=== PATIENT | male | born 1995 | race Caucasian/White ===

== ENCOUNTER 2023-06-02 11:19 | Inpatient (IN) | payer OTHER ==
[~2023-06-02] VITALS: Ht 167.6 cm; Wt 76.8 kg
[2023-06-02 11:44] VITALS: BP 135/82; PULSE 110; RESP 18; TEMP 97.8; O2SAT 98
[2023-06-02] MEDS ORDERED: ONDANSETRON 4 MG/2 ML VIAL IVP ONE (12:15)
[2023-06-02] MEDS ORDERED: MIDAZOLAM 5 MG/5 ML VIAL IV ONE (12:15)
[2023-06-02] MEDS ORDERED: NACL 0.9% 1,000 ML IV SCH (12:15)
[2023-06-02] MEDS ORDERED: THIAMINE 100 MG TAB PO ONE (12:20)
[2023-06-02 12:51] LABS: BILIRUBIN,URINE 3+ (NEGATIVE); BLOOD, URINE NEGATIVE (NEGATIVE); LEUKOCYTE ESTERASE ,URINE TRACE (NEGATIVE); NITRITE, URINE POSITIVE (NEGATIVE); PH,URINE 8.5 (5.0-9.0); PROTEIN,URINE 3+ (NEGATIVE); UGLUCOSE TRACE (NEGATIVE); UROBILINOGEN,URINE >=8.0 EU/dL (0.2 - 1)
[2023-06-02 12:53] LABS: COLOR,URINE AMBER (YELLOW)
[2023-06-02 13:01] LABS: APPEARANCE,URINE CLEAR (CLEAR); MUCUS,URINE 1+ /LPF (None Seen); RBC,URINE 0-5 /HPF (0-5); SQUAMOUS EPITHELIAL CELL,UR 0-3 (FEW) /LPF (0-3 (FEW)); WBC,URINE 0-5 /HPF (0-5)
[2023-06-02 13:02] LABS: BASOPHILS # (AUTO) 0.1 K/uL (0.00-0.22); BASOPHILS % (AUTO) 1.2 % (0.0-2.0); EOSINOPHILS % (AUTO) 0.3 % (0.0-4.0); HEMATOCRIT 37.5 % (36-52); HEMOGLOBIN 12.7 g/dL (12.0-18.0); LYMPHOCYTES % (AUTO) 9.9 % (20.5-51.1); MEAN CORPUSCULAR HEMOGLOBIN 33 pg (27-31); MEAN CORPUSCULAR HGB CONC 34 g/dL (33-37); MEAN CORPUSCULAR VOLUME 96.1 fL (80-94); MONOCYTES # (AUTO) 0.8 K/uL (0.8-1.0); MONOCYTES % (AUTO) 8.5 % (1.7-9.3); NEUTROPHILS # (AUTO) 7.9 K/uL (1.8-7.7); NEUTROPHILS % (AUTO) 80.1 % (42.2-75.2); PLATELET COUNT (AUTO) 122 K/uL (140-450); RED CELL DISTRIBUTION WIDTH 17.4 % (11.6-13.7); WHITE BLOOD COUNT (AUTO) 9.9 K/uL (4.8-10.8)
[2023-06-02 13:03] LABS: BACTERIA,URINE FEW /HPF (None Seen); ICTOTEST POSITIVE (NEGATIVE)
[2023-06-02 13:04] LABS: AMPHETAMINE, URINE NEGATIVE ng/ml (NEG <=1000); BARBITURATE, URINE NEGATIVE ng/ml (NEG <=200); BENZODIAZEPINE, URINE NEGATIVE ng/mL (NEG <=200); CANNABINOID, URINE NEGATIVE ng/mL (NEG <=50); COCAINE, URINE NEGATIVE ng/mL (NEG <=300); OPIATE, URINE NEGATIVE ng/mL (NEG <=2000); PHENCYCLIDINE SCREEN,URINE NEGATIVE ng/mL (NEG <=25)
[2023-06-02 13:20] LABS: ANION GAP 13.9 (8-16); CALCIUM 9.2 mg/dL (8.5-10.1); CARBON DIOXIDE 25.7 mmol/L (21-32); CREATININE 0.7 mg/dL (0.6-1.3); POTASSIUM 3.6 mmol/L (3.5-5.1)
[2023-06-02 13:23] LABS: MAGNESIUM 1.7 mg/dL (1.8-2.4); PHOSPHORUS 2.7 mg/dL (2.5-4.9)
[2023-06-02] MEDS ORDERED: MIDAZOLAM 5 MG/5 ML VIAL ONE (13:25)
[2023-06-02] MEDS ORDERED: ONDANSETRON 4 MG/2 ML VIAL ONE (13:25)
[2023-06-02 13:26] LABS: ALANINE AMINOTRANSFERASE 66 U/L (12-78); ALBUMIN 3.8 g/dL (3.4-5.0); ALCOHOL, BLOOD < 3 mg/dL (<10); ALKALINE PHOSPHATASE 188 U/L (50-136); ASPARTATE AMINOTRANSFERASE 250 U/L (15-37); BILIRUBIN,DIRECT 3.4 mg/dL (0.0-0.3); CREATINE KINASE, TOTAL 86 U/L (39-308); TOTAL BILIRUBIN 6.2 mg/dL (0.0-1.0); TOTAL PROTEIN, SERUM 10.4 g/dL (6.4-8.2)
[2023-06-02] MEDS ORDERED: cefTRIAXone 1,000 MG VIAL ONE (13:26)
[2023-06-02] MEDS ORDERED: THIAMINE 100 MG TAB ONE (13:26)
[2023-06-02 13:34] LABS: INR 1.3 (0.8-1.2); PARTIAL THROMBOPLASTIN TIME 31.2 secs (22-35.6); PROTHROMBIN TIME 13.4 secs (10.8-13.4)
[2023-06-02 13:44] LABS: ACETAMINOPHEN < 0.5 ug/ml (10-30); SALICYLATE < 2.8 mg/dL (2.8-20.0)
[2023-06-02] MEDS ORDERED: MORPHINE SULFATE 2 MG/ML SYR IVP PRN (15:15)
[2023-06-02] MEDS ORDERED: FOLIC ACID 1 MG TAB PO ONE (15:15)
[2023-06-02] MEDS ORDERED: ONDANSETRON 4 MG/2 ML VIAL IVP PRN (15:15)
[2023-06-02] MEDS ORDERED: THIAMINE 200 MG/2 ML VIAL IM ONE (15:15)
[2023-06-02] MEDS ORDERED: ACETAMINOPHEN 325 MG TAB PO PRN (15:15)
[2023-06-02] MEDS: NACL 0.9% 1,000 ML IV SCH ×2 (15:30→22:48)
[2023-06-02] MEDS: THIAMINE 100 MG TAB PO SCH (17:06)
[2023-06-02] MEDS ORDERED: LORazepam 2 MG/ML VIAL IVP PRN (18:30)
[2023-06-02 20:23] VITALS: BP 110/63; PULSE 91; PULSE 92; RESP 16; TEMP 97.6; O2SAT 98
[2023-06-03] VITALS: BP 112/79; PULSE 89; PULSE 90; RESP 16; TEMP 97.7; O2SAT 96
[2023-06-03] MEDS: LORazepam 1 MG TAB PO SCH ×3 (01:40→13:04)
[2023-06-03 04:00] VITALS: BP 101/64; PULSE 84; RESP 16; TEMP 97.8; O2SAT 100
[2023-06-03] MEDS: NACL 0.9% 1,000 ML IV SCH (04:35)
[2023-06-03 06:10] LABS: BASOPHILS # (AUTO) 0.1 K/uL (0.00-0.22); BASOPHILS % (AUTO) 0.9 % (0.0-2.0); EOSINOPHILS # (AUTO) 0.1 K/uL (0-0.4); EOSINOPHILS % (AUTO) 1.6 % (0.0-4.0); HEMATOCRIT 35.4 % (36-52); HEMOGLOBIN 11.7 g/dL (12.0-18.0); LYMPHOCYTES # (AUTO) 1.6 K/uL (2.0-11.5); LYMPHOCYTES % (AUTO) 17.2 % (20.5-51.1); MEAN CORPUSCULAR HEMOGLOBIN 33 pg (27-31); MEAN CORPUSCULAR HGB CONC 33 g/dL (33-37); MEAN CORPUSCULAR VOLUME 98.8 fL (80-94); MONOCYTES # (AUTO) 0.9 K/uL (0.8-1.0); MONOCYTES % (AUTO) 10.2 % (1.7-9.3); NEUTROPHILS # (AUTO) 6.4 K/uL (1.8-7.7); NEUTROPHILS % (AUTO) 70.1 % (42.2-75.2); PLATELET COUNT (AUTO) 100 K/uL (140-450); RED BLOOD CELL COUNT(AUTO) 3.59 MIL/uL (4.20-6.10); RED CELL DISTRIBUTION WIDTH 17.4 % (11.6-13.7); WHITE BLOOD COUNT (AUTO) 9.1 K/uL (4.8-10.8)
[2023-06-03 06:29] LABS: ANION GAP 12.5 (8-16); CALCIUM 8.7 mg/dL (8.5-10.1); CREATININE 0.6 mg/dL (0.6-1.3); MAGNESIUM 1.6 mg/dL (1.8-2.4); POTASSIUM 3.5 mmol/L (3.5-5.1); TOTAL BILIRUBIN 6.7 mg/dL (0.0-1.0); TOTAL PROTEIN, SERUM 9.2 g/dL (6.4-8.2)
[2023-06-03] MEDS ORDERED: THIAMINE 100 MG TAB PO SCH (09:00)
[2023-06-03] MEDS: THIAMINE 100 MG TAB PO SCH (09:56)
[2023-06-03] MEDS ORDERED: CHLO5CAP29 PO (15:39)
== END 2023-06-03 18:10 | disposition home or self-care (01) | DRG 92 ==
LOC: MED 11:19 → MTU 15:12
PROVIDERS: ADMIT Hospitalist; ATTEND Hospitalist
DX: G92.8 Other toxic encephalopathy (principal); F10.239 Alcohol dependence with withdrawal, unspecified; E80.6 Other disorders of bilirubin metabolism; K75.81 Nonalcoholic steatohepatitis (NASH)
CPT/HCPCS: 36415; 71045; 76705; 80048; 80053; 80076; 80305; 81001; 82550; 83605; 83690; 83735; 83880; 84100; 84484; 85025; 85610; 85730; 87040; 87081; 87086; 93005; 96365; 96375; 99291; G0480; G0482; J0696; J2250; J2405; J3411; Q0092

== ENCOUNTER 2023-06-18 08:25 | Emergency (ER) | payer OTHER ==
[~2023-06-18] VITALS: Ht 152.4 cm; Wt 72.6 kg
[~2023-06-18 08:25] MED LIST: CHLO5CAP29 PO
[2023-06-18 08:59] VITALS: BP 118/74; PULSE 81; RESP 18; TEMP 98; O2SAT 98
== END 2023-06-18 10:24 | disposition home or self-care (01) ==
LOC: MED 08:25
DX: S11.81XA Laceration without foreign body of other specified part of neck, initial encounter (principal); Z79.899 Other long term (current) drug therapy; X58.XXXA Exposure to other specified factors, initial encounter; Y93.89 Activity, other specified; Y92.89 Other specified places as the place of occurrence of the external cause; Y99.8 Other external cause status
CPT/HCPCS: 12001; 90471; 90715; 99283